=== PATIENT | female | born 1960 | race Caucasian/White ===

== ENCOUNTER → 2016-06-07 | Outpatient (CLI) | payer MEDICARE, OTHER ==
--- NOTE | 2016-06-07 16:30 | DI ---
Indication: ITS.REASON: M25.512 PROCEDURE: MRI SHOULDER LEFT W/O CONTRAST: Encounter: Initial Comparison: None Technique: Multiplanar multisequence MR imaging of the left shoulder was performed without contrast. Findings: There is a longitudinal split tear of the long head biceps tendon which may be completely torn at the superior aspect of the bicipital groove. Subscapularis tendon shows a high-grade or possibly complete tear distally. The sagittal sequence is severely degraded by motion artifact and is nondiagnostic. There is a rim rent tear of the distal supraspinatus tendon with tendinopathy. No complete or full-thickness tear. There are acromial osteophytes impinging upon the supraspinatus best seen on coronal image #9. The infraspinatus tendon shows some tendinopathy or intrasubstance tearing distally. Teres minor tendon is grossly intact. No acute fracture. Moderate acromioclavicular degenerative change. Trace fluid in the subacromial subdeltoid bursa. Some degenerative tearing or fraying of the superior labrum. Muscular signal intensity is grossly normal. Impression: Limited exam due to motion artifact. 1. Tear of the long head biceps tendon and subscapularis. 2. Partial tearing of the supraspinatus and infraspinatus tendons. .
== END ==
LOC: IMA 14:06
PROVIDERS: ATTEND Orthopaedic Surgery
DX: S46.012A Strain of muscle(s) and tendon(s) of the rotator cuff of left shoulder, initial encounter (principal); S46.112A Strain of muscle, fascia and tendon of long head of biceps, left arm, initial encounter; X58.XXXA Exposure to other specified factors, initial encounter; Y93.9 Activity, unspecified; Y92.9 Unspecified place or not applicable; Y99.9 Unspecified external cause status; M25.512 Pain in left shoulder

== ENCOUNTER → 2016-07-04 | Outpatient (CLI) | payer MEDICARE, OTHER ==
[2016-07-04 10:07] LABS: BASOPHILS % (AUTO) 0.4 % (0-2); EOSINOPHILS # (AUTO) 0.3 T/MM3 (0-0.5); HCT - HEMATOCRIT 42.4 % (36-46); HGB - HEMOGLOBIN 13.9 GM/DL (12-16); IMMATURE GRANULOCYTE # (AUTO) 0.02 T/MM3 (0.00-0.03); IMMATURE GRANULOCYTE % (AUTO) 0.3 % (0.0-0.5); LYMPHOCYTES # (AUTO) 2.4 T/MM3 (1-4.8); LYMPHOCYTES % (AUTO) 32.5 % (23-45); MEAN CORPUSCULAR HGB CONC(MCHC 32.8 GM/DL (31-37); MEAN CORPUSCULAR VOLUME 85.5 UM3 (80-100); MEAN PLATELET VOLUME 9.7 UM3 (9.4-12.4); MONOCYTES # (AUTO) 0.9 T/MM3 (0-0.8); NEUTROPHILS #(AUTO)-ABSOLUTE 3.7 T/MM3 (1.8-7.7); NEUTROPHILS % (AUTO) 50.8 % (33-66); RED BLOOD COUNT 4.96 M/MM3 (4.00-5.20); WBC - WHITE BLOOD COUNT 7.2 T/MM3 (4.5-11.0)
[2016-07-04 10:19] LABS: ANION GAP 14 MEQ/L (5-15); BUN/CREATININE RATIO 26 RATIO (6-26); CALCIUM 9.6 MG/DL (8.4-10.2); CHLORIDE 108 MEQ/L (98-107); CO2 - CARBON DIOXIDE 24 MEQ/L (22-30); CREATININE 0.9 MG/DL (0.7-1.2); GLOMERULAR FILTRATION RATE 65; GLUCOSE 111 MG/DL (65-110); POTASSIUM 4.1 MEQ/L (3.6-5); SODIUM 146 MEQ/L (134-144)
== END ==
LOC: IMA 09:40
PROVIDERS: ATTEND Orthopaedic Surgery
DX: Z01.818 Encounter for other preprocedural examination (principal); M25.512 Pain in left shoulder
CPT/HCPCS: 36415; 80048; 85025; 93005

== ENCOUNTER 2016-07-16 09:18 | Day surgery (SDC) | payer MEDICARE, OTHER ==
[2016-07-16] VITALS (24 sets, daily range): BP systolic 107–156; BP diastolic 62–94; PULSE 64–72; RESP 14–39; TEMP 96.9–97.7; O2SAT 81–99; Ht 154.9 cm; Wt 78.7 kg
[~2016-07-16] VITALS: Ht 154.9 cm; Wt 78.7 kg
--- NOTE | 2016-07-16 07:50 | HPF ---
CHIEF COMPLAINT Left shoulder pain. SUBJECTIVE Ms. Garrison returns for followup on left shoulder pain. She has been evaluated by Dr. Real. Pain has been intermittent for a number of years with no specific injury. 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 It is located laterally and anterolaterally, radiates to the deltoid. It is moderate in severity, worse with overhead activity, throwing, pushing, pulling, weather changes. She has tried ibuprofen in the past as well as home exercises , rest, ice and heat - all without improvement. She has no previous history with this shoulder. She has had no injections. Symptoms included pain at night which awakens her from sleep. She has popping and weakness. MRI was ordered and it shows a high-grade partial-thickness tear of the anterior supraspinatus. Difficult to determine if it is truly full-thickness. Tendon showed some tendinopathy as well. Subscapularis-- there is a high-grade tearing , possible complete tear of the superior aspect. Long head biceps shows split tearing and appears to be ruptured but hung up within the groove. There is degenerative signal in superior labrum as well. Fluid is present in the subacromial bursa. There is moderate AC joint change. REVIEW OF SYSTEMS Negative for fever or chills. Negative for skin infection or rash. Negative for numbness or tingling. PAST MEDICAL HISTORY 1. Bronchitis. 2. Asthma. 3. Pneumonia. 4. Anxiety. 5. Depression. 6. Hypercholesterolemia. 7. Yeast syndrome. ALLERGIES Codeine upsets her stomach. MEDICATIONS Ibuprofen as needed. PAST SURGICAL HISTORY 1. Heel reconstruction. 2. Nose reconstruction. 3. Hysterectomy. 4. Hiatal hernia repair. 5. Left elbow surgery. 6. Left carpal tunnel release. 7. Right rotator cuff surgery. 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 Uses alcohol on occasional basis. Denies illicit drug use. FAMILY HISTORY Reviewed and updated in the EMR. PHYSICAL EXAM 5 feet, 1-1/2 inches tall. Weighs 178 pounds. Well developed. Well nourished. Alert and oriented x 3. No acute distress. Pleasant. Cooperative. There is no rash or abnormal lesions in the affected extremity. 2+ palpable distal pulses. Brisk capillary refill in all digits. Normal sensation to light touch in affected extremities. Gait exam is normal without any assistive device. Left upper extremity is focused on. It shows no swelling, deformity or mass. There is tenderness present over the anterolateral border of the acromion, mild tenderness over the greater tuberosity. AC joint, neck, posterior joint line and bicipital groove are nontender. Range of motion: She actively forward flexes to 150 with pain, passively goes to 170. Abducts to 130 with a painful impingement of arc in abduction. Internal rotation is to L5. External rotation to 60. Mild weakness with abduction and external rotation. This causes pain as well. Internal rotation strength at this side is normal. She does have a positive bear hug test. Stability: Joint stable in all planes. Positive Sullivan and Neer impingement signs. Negative Speed's, Yergason's and O 'Parish's. No instability. Contralateral extremity: Complete exam is performed. Shows skin is intact. No swelling. No tenderness. Normal range of motion. Normal strength and stability. ASSESSMENT Left shoulder pain with high-grade partial versus full-thickness supraspinatus rotator cuff tear as well as partial versus full-thickness upper border subscapularis tear and long head biceps tendon rupture. PLAN Dr. Real is recommending a left shoulder arthroscopy, rotator cuff repair, subacromial decompression, debridement and treatment as needed. Risks and benefits have been reviewed. They include, but are not limited to, nerve damage , artery damage, infection, stroke, SD, pulmonary embolism, deep vein thrombosis , ileus, , potential risk she may not regain full strength and full motion or have continued pain following surgery. There are also medical risks of the anesthesia. She had an opportunity to ask questions. They were all answered to her satisfaction. BENJAMIN
[~2016-07-16 09:18] MED LIST: CEFAZOLIN 1 GRAM INJECTION IV ONE; LIDOCAINE 1% (10mg/ml) 2ml SDV INJ ONE; MIDAZOLAM 2mg/2ml INJECTION IV ONE; PROPOFOL 500mg 50 ML IV ONE; ROCURONIUM 50mg/5ml INJECTION IV ONE; ROPIVACAINE 0.5% (5mg/ml) 30ml INJ ONE
--- OUTSIDE RECORDS SUMMARY | 2016-07-16 09:23 | XMS REPORT | Continuity of Care Document ---
Author Author [facility] Address Unknown Phone Unavailable Care Team Providers Care [employer] Sales Manager Name Role Phone Abigail Feliciano PP Unavailable Payers Payer name Insurance type Covered alliance party ID Authorization(s) Unknown Problems Condition Effective Dates (start - stop) Clinical Status Bronchitis, Acute - *Chronic Bronchitis, Acute - *Acute Family History Family Member Diagnosis Age At Onset Status Father (Unknown) Heart disease Yes Sister (Unknown) Multiple Sclerosis Yes Brother (Unknown) Cancer - testicular Yes Mother (Unknown) Cancer - lymphoma Yes Father (Unknown) Cancer - unknown Yes Mother (Unknown) COPD Yes Social History Social History Element Description Quantity Unknown Allergies, Adverse Reactions, Alerts Substance Reaction Severity Status Unknown Medications Medication Instructions Dosage Effective Dates (start - stop) Status ibuprofen 200 mg capsule take 1 capsule (200MG) by oral route every 6 hours as needed 200 MG - Active Daytime Cold & Flu Relief 30 mg-10 mg-100 mg-250 mg capsule take 1 Tablet by Oral route every day as needed 0 - Active Ceftin 500 mg tablet take 1 tablet (500MG) by oral route every 12 hours 500 MG - Active Ventolin HFA 90 mcg/actuation aerosol inhaler inhale 2 puff by inhalation route every 4 - 6 hours as needed 0 - Active Immunizations Vaccine Date Status Comments Unknown Results Test Name Date and Time Measure Units Reference Range Abnormal Flag Comments Panel Description: Influenzae A/B Influenzae A 18:00:00 Negative for Influenzae A Negative for Influen Influenzae B 18:00:00 Negative for Influenzae B Negative for Influen Vital Signs Date / Time: Height Weight Pulse Rate Blood Pressure Temperature /17:27:00 61.00 in 159.00 lbs 125 /min 140/110 mm[Hg] 98.4 F Procedures Procedure Date Unknown Encounters Encounter Location Date Patient Visit [facility] Care Patient Visit [facility] Care Advance Directives Directive Effective Date Unknown
--- OUTSIDE RECORDS SUMMARY | 2016-07-16 09:23 | XMS REPORT | Continuity of Care Document ---
Author Author [facility] Organization [facility] Address Unknown Phone Unavailable Allergies Medications Problems Procedures Results Encounters ACCT No. Visit Date/Time Discharge Status Pt. Type Provider Facility Loc./Unit Complaint [id number] 03/09/2013 17:20:00 03/09/2013 23 :59:59 [facility] Outpatient
--- NOTE | 2016-07-16 10:12 | ANESPREOP ---
Anesthesia Record Date and Time DATE: 07/16/16 TIME: 10:10 Pre-Op Diagnosis left rotator cuff tear Proposed Surgical Procedure lt. shoulder arthroscopy/rcr/sad/debridement/silverman Allergies: Coded Allergies: codeine (Verified Allergy, Unknown, UPSET STOMACH, 07/13/16) Ht/Wt/BMI Height: 5 ' 1.00 " Weight: 78.700 kg BMI: 32.8 kg/m2 Medications Inpatient Medications Current Medications Medications (Trade) Dose Ordered Sig/Yazmin Start Time Stop Time Status Last Admin Dose Admin Lactated Ringer's (Lactated Ringers) 1,000 ml @ 50 mls/hr Q20H 07/16/16 07:00 No Active Prescriptions or Reported Meds Currently on Beta Serg: No Medical/Surgical History Anesthesia PMH: Reports: Asthma, COPD, Hiatal Hernia (HX OF REPAIR), Denies: * Angina, *Diabetes, *Hypertension, *FL, CHF, CVA/Stroke/TIA, Cancer, Clotting Problems, Glaucoma, Hepatitis, Malignant Hyperthermia, Pneumonia, Seizures, Thyroid Disease, Tuberculosis Smoking Status: Former smoker Has pt. smoked today?: No # of Packs per Day: 1 # of Years: 20 Use Chewing Tobacco?: No Second Hand Exposure: No Substance Use Type: does not use Alcohol Intake: none HX of Last Menstrual Period: HYST. Past Surgical History Orthopedic Surgeries: Yes - R. SHOULDER, L.ELBOW, CTR-RIGHT. Abdominal Surgeries: Genitourinary Surgeries: Cardiac Surgeries: Endocrine Surgeries: Reproductive Surgeries: Yes - HYST. Neurological Surgeries: Ear Surgeries: Nose Surgeries: Yes - RECONSTRUCTION NOSE Throat Surgeries: Other Surgeries: Yes - HIATAL HERNIA Anesthesia Adverse Reactions: FOUND none Family Hx of Anesthesia Advers: none Pertinent Findings EKG Rhythm: Sinus Rhythm, Bundle Branch Block Physical Exam Respiratory: Lungs clear Cardiovascular: FOUND No murmur Airway Assessment Mallampati Score: II TMD: 3 Fingerbreadths Neck Extension: Good Teeth: Chipped Teeth/Crowns Overall Assessment: No Airway Concerns ASA: 2 Plan Anesthesia Plan: GETA Peripheral Nerve Block: Interscalene Block - LT Discussion Discussed risks/options/alternatives of anesthesia and questions answered. Patient consents. Nursing pain assessment noted. Attestation Statement Prior to the delivery of any anesthetic medication, I examined the patient, developed the plan, obtained the patient's consent and discussed the risk and benefits of the procedure with the patient/guardian. IMANI SPARKS CRNA July 16, 2016 10:12
[2016-07-16] MEDS: LR 1,000 ML IV SCH ×2 (10:28→13:11)
[2016-07-16] MEDS ORDERED: MIDAZOLAM 2mg/2ml INJECTION IV ONE ×2 (10:30→13:15)
--- NOTE | 2016-07-16 10:30 | ANESPD ---
Peripheral Nerve Blockade Physician: Cristino Real MD Date: 07/16/16 Surgical Procedure: left rotator cuff repair Discussion Discussed risks/options/alternatives of anesthesia and questions answered. Patient consents. Nursing pain assessment noted. Block Start: 10:20 Block Stop: 10:25 Block Employed: [employer] Indication: post-operative pain Approach: left side confirmed Position: supine Patient: Consent, risks/benefits discussed, Informed, post block act. discussed Monitors: EKG, SpO2, NIBP IV Sedation: Yes Midazolam (mg): 1 Initial Vital Signs First Documented Vital Signs Date Time Temp Pulse Resp B/P Pulse Ox O2 Delivery O2 Flow Rate FiO2 07/16/16 10:19 16 Post Vital Signs Vital Signs Date Time Temp Pulse Resp B/P Pulse Ox O2 Delivery O2 Flow Rate FiO2 07/16/16 10:19 16 Initial Pain Score: 0 Post Block Score: 0 Prep: chlorhexadine/ETOH Ultrasound Used?: Yes Injectate Ropivacaine (%): 0.5 Ropivacaine (mL): 25 Was Epi 1:200,000 Used?: No Injection Injection made incrementally with constant monitoring and aspiration every [5] ml. IMANI SPARKS I VACUUM CLEANER OPERATOR July 16, 2016 10:30
[2016-07-16] MEDS ORDERED: PROPOFOL 200mg 20 ML IV ONE (11:53)
[2016-07-16] MEDS ORDERED: SUGAMMADEX 200 MG/2 ML INJECTION IV ONE (12:14)
[2016-07-16] MEDS ORDERED: MELO7.5T12 PO (12:28)
[2016-07-16] MEDS ORDERED: ONDA4TAB4 PO (12:28)
[2016-07-16] MEDS ORDERED: OXYC1TAB8 PO (12:28)
--- NOTE | 2016-07-16 12:30 | PDPROCED ---
Immediate Operative Note DATE: 07/16/16 TIME: 12:28 Preop Diagnosis: LEFT SHOULDER PAIN, RCT IMPINGEMENT Postop Diagnosis: Left shoulder rotator cuff tear, impingement, long head biceps degeneration Surgical Procedures: L Arthroscopic RCR (SAD, biceps tenotomy) Surgeon: Farhan Anesthesia: General (plus regional block) Complications: none Estimated Blood Loss see anesthesia MARÍA CLAUDIO July 16, 2016 12:30
--- NOTE | 2016-07-16 13:39 | NUR ---
STATUS PT AWAKENS THRASHING SAYING SHE CAN'T BREATH BUT CAPNOGRAPHY AND SP02 RESD WELL WHEN ASLEEP RESP REG AT 16 TO 20 PER MIN PT DOES SNORE OCCASIONALLY BUT NO EPISODES OF APNEA NOTED. PT IS NOT COMPLETELY ALERT AND ORIENTED. DRIFTS OFF TO SLEEP EASILY. DENIES PAIN.
--- NOTE | 2016-07-16 14:54 | ANESPO ---
Post-Op Note Date 07/16/16 Time: 13:55 Status Pt Participated in Evaluation: Pt participated in person Vital Signs Date Time Temp Pulse Resp B/P Pulse Ox O2 Delivery O2 Flow Rate FiO2 07/16/16 14:15 64 16 137/94 96 Room Air 07/16/16 13:45 97.2 07/16/16 13:25 2.00 Respiratory Function: Airway patent, Regular respirations Cardiovascular Function: Regular pulse Mental Status: Alert/oriented Pain Level Intensity: 0 Hydration: Taking po fluids Complications during Recovery None apparent Follow-Up Instructions Instructions Per Surgeon IMANI SPARKS CRNA July 16, 2016 14:54
[2016-07-16] MEDS ORDERED: EPINEPHRINE 1 MG/ML INJ ONE (15:09)
--- NOTE | 2016-07-16 20:02 | OPNOTEF ---
DATE OF OPERATION 07/16/2016 PREOPERATIVE DIAGNOSES 1. Left shoulder rotator cuff tear. 2. Left shoulder long head biceps tendon tear. 3. Left shoulder rotator cuff impingement. POSTOPERATIVE DIAGNOSES 1. Left shoulder partial-thickness articular-sided subscapularis tear. 2. Left shoulder full-thickness supraspinatus tear. 3. Left shoulder high-grade partial-thickness long head biceps tendon tear with degenerative type II SLAP lesion. 4. Left shoulder degenerative anterior labral tear. 5. Left shoulder rotator cuff impingement. PROCEDURE 1. Left shoulder arthroscopic rotator cuff repair to include subscapularis and supraspinatus. 2. Left shoulder arthroscopic long head biceps tenotomy. 3. Left shoulder arthroscopic debridement anterior and superior labrum. 4. Left shoulder arthroscopic subacromial decompression. SURGEON Cristino Real MD SALMON [employer]ILL[employer] VESSEL OPERATOR Wayne Kaminski PA-C ANESTHESIA General with regional block. FLUIDS Please refer to Anesthesia chart EBL Minimal. TOURNIQUET None used. COMPLICATIONS None. CONDITION Stable in recovery room. DESCRIPTION OF PROCEDURE The patient was identified in the preoperative holding area. The operative extremity was identified and appropriately marked. Risks, benefits, alternatives and potential complications were discussed and informed consent was obtained. The patient was taken to the operating theatre and placed supine on the operating table. Appropriate cardiorespiratory monitors were applied. General anesthesia was induced. A regional block had been placed in preoperative holding. The patient was positioned in a seated beach-chair position with all bony prominences well padded. Head and neck were secured in a safe position. Left upper extremity was sterilely prepped and draped in the usual fashion. Surgical time-out was performed, confirmed with myself, the car sales associate and circulating nurse. Preoperative antibiotics were given. Examination under anesthesia revealed full passive range of motion of the left shoulder. No evidence of instability. A standard posterior arthroscopic portal was established. The arthroscope was inserted and the glenohumeral joint was insufflated with saline. Needle localization was utilized to establish an anterior portal in the rotator interval and diagnostic examination ensued. The glenohumeral articular cartilage was well maintained. There was degenerative fraying of the anterior labrum which was debrided with a shaver. The inferior axillary recess was free of loose bodies or debris. Posterior labrum was intact. Superior labrum showed detachment of the long head biceps anchor with degenerative fraying of the superior labrum. The long head biceps was intact in its intraarticular portion. It was pulled into the joint, noting high-grade partial-thickness tearing and diffuse tenosynovitis throughout the extraarticular portion. This was found to also be unstable anteriorly through a tear of the articular side of the superior border of the subscapularis. Because of the condition of the tendon tissue at the long head biceps it was elected to proceed with a tenotomy. An arthroscopic basket forceps was introduced and this was released from its attachment at the superior labrum and allowed to retract. The superior labrum was then further debrided. The subscapularis was then examined closer. It was found to be nearly a full-thickness tear of the upper one-third. The undersurface was debrided, noting tendinopathy and intrasubstance splitting lateral to medial. This time undersurface of the tendon was debrided. The footprint was debrided to a bleeding cortical surface. Two #2 high strength sutures were passed in a cinch stitch type fashion through the upper border of the subscapularis. These were then passed through a Multifix S anchor which was positioned in the anatomic location of the superior aspect of the lesser tuberosity. This was then impacted as the sutures were tensioned which provided good reapproximation of the upper border of the subscapularis to its anatomic footprint. Suture tails were cut. The supraspinatus was then inspected. There was noted to be a few strands of articular-sided tendon tissue remaining. These were easily debrided with a shaver, revealing a full-thickness rotator cuff tear. Infraspinatus and teres minor posteriorly were found to be intact. The footprint was debrided to a bleeding cortical surface at its medial aspect. The arthroscope was then withdrawn and placed into the subacromial space. A lateral portal was established. A thorough bursectomy was performed to include the anterolateral and posterior gutters. CA ligament was notably frayed. It was released, revealing a moderate-size anterolateral subacromial spur. Preoperative imaging had also noted some AC joint arthritis that was asymptomatic but did have inferior spurring. A standard acromioplasty was then performed with a 5.5 bur to convert this acromion to a type 1 acromion. The lateral clavicle was co-planed of its underlying spurs. The bursal aspect of the cuff was then inspected. The full-thickness supraspinatus tear was easily identified. The edge of the tendon was debrided. This was a crescentic tear measuring slightly over 2 cm from anterior to posterior. The remainder of the footprint was debrided to a bleeding cortical surface. An accessory portal was created and two 5.0 mm TwinFix anchors were placed along the medial margin of the footprint. These sutures were passed in a horizontal mattress configuration and subsequently tied arthroscopically. A free strand of suture was placed through the far anterior aspect to try to grasp the dog ear that appeared to be forming in this area. A single limb of suture from each knot as well as a single limb from the free suture were then pulled laterally out the cannula and placed through a Multifix S anchor. The first Multiflex S anchor was placed at the anterior margin of the tear on the lateral aspect of the greater tuberosity. The anchor was impacted, deployed and the suture tails cut after appropriate tensioning. This was then repeated for a second anchor more posteriorly. Probing of the rotator cuff repair noted a stable and intact repair. The shoulder was taken through range of motion, noting no gapping of the repair. The shoulder was then copiously lavaged, irrigated and drained. All arthroscopic instruments were removed. Portals were closed with nylon sutures. Sterile dressings were applied followed by an abduction sling. The patient was awakened from anesthesia and taken to the recovery room in stable and satisfactory condition. BENJAMIN
--- NOTE | 2016-07-17 22:12 | HPF ---
CHIEF COMPLAINT Left shoulder pain. SUBJECTIVE Ms. Garrison returns for followup on left shoulder pain. She has been evaluated by Dr. Real. Pain has been intermittent for a number of years with no specific injury. 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 It is located laterally and anterolaterally, radiates to the deltoid. It is moderate in severity, worse with overhead activity, throwing, pushing, pulling, weather changes. She has tried ibuprofen in the past as well as home exercises, rest, ice and heat - all without improvement. She has no previous history with this shoulder. She has had no injections. Symptoms included pain at night which awakens her from sleep. She has popping and weakness. MRI was ordered and it shows a high-grade partial-thickness tear of the anterior supraspinatus. Difficult to determine if it is truly full-thickness. Tendon showed some tendinopathy as well. Subscapularis-- there is a high-grade tearing, possible complete tear of the superior aspect. Long head biceps shows split tearing and appears to be ruptured but hung up within the groove. There is degenerative signal in superior labrum as well. Fluid is present in the subacromial bursa. There is moderate AC joint change. REVIEW OF SYSTEMS Negative for fever or chills. Negative for skin infection or rash. Negative for numbness or tingling. PAST MEDICAL HISTORY 1. Bronchitis. 2. Asthma. 3. Pneumonia. 4. Anxiety. 5. Depression. 6. Hypercholesterolemia. 7. Yeast syndrome. ALLERGIES Codeine upsets her stomach. MEDICATIONS Ibuprofen as needed. PAST SURGICAL HISTORY 1. Heel reconstruction. 2. Nose reconstruction. 3. Hysterectomy. 4. Hiatal hernia repair. 5. Left elbow surgery. 6. Left carpal tunnel release. 7. Right rotator cuff surgery. 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 Uses alcohol on occasional basis. Denies illicit drug use. FAMILY HISTORY Reviewed and updated in the EMR. PHYSICAL EXAM 5 feet, 1-1/2 inches tall. Weighs 178 pounds. Well developed. Well nourished. Alert and oriented x 3. No acute distress. Pleasant. Cooperative. There is no rash or abnormal lesions in the affected extremity. 2+ palpable distal pulses. Brisk capillary refill in all digits. Normal sensation to light touch in affected extremities. Gait exam is normal without any assistive device. Left upper extremity is focused on. It shows no swelling, deformity or mass. There is tenderness present over the anterolateral border of the acromion, mild tenderness over the greater tuberosity. AC joint, neck, posterior joint line and bicipital groove are nontender. Range of motion : She actively forward flexes to 150 with pain, passively goes to 170. Abducts to 130 with a painful impingement of arc in abduction. Internal rotation is to L5. External rotation to 60. Mild weakness with abduction and external rotation. This causes pain as well. Internal rotation strength at this side is normal. She does have a positive bear hug test. Stability: Joint stable in all planes. Positive Sullivan and Neer impingement signs. Negative Speed's, Yergason's and Esmeralda's. No instability. Contralateral extremity: Complete exam is performed. Shows skin is intact. No swelling. No tenderness. Normal range of motion. Normal strength and stability. ASSESSMENT Left shoulder pain with high-grade partial versus full-thickness supraspinatus rotator cuff tear as well as partial versus full-thickness upper border subscapularis tear and long head biceps tendon rupture. PLAN Dr. Real is recommending a left shoulder arthroscopy, rotator cuff repair, subacromial decompression, debridement and treatment as needed. Risks and benefits have been reviewed. They include, but are not limited to, nerve damage, artery damage, infection, stroke , PA, pulmonary embolism, deep vein thrombosis, ileus, , potential risk she may not regain full strength and full motion or have continued pain following surgery. There are also medical risks of the anesthesia. She had an opportunity to ask questions. They were all answered to her satisfaction. BENJAMIN
== END 2016-07-16 14:55 | disposition home or self-care (01) ==
LOC: NSC 09:18
PROVIDERS: ATTEND Orthopaedic Surgery
DX: M75.122 Complete rotator cuff tear or rupture of left shoulder, not specified as traumatic (principal); M75.112 Incomplete rotator cuff tear or rupture of left shoulder, not specified as traumatic; S46.112A Strain of muscle, fascia and tendon of long head of biceps, left arm, initial encounter; S43.432A Superior glenoid labrum lesion of left shoulder, initial encounter; M75.42 Impingement syndrome of left shoulder; J44.9 Chronic obstructive pulmonary disease, unspecified; J45.909 Unspecified asthma, uncomplicated; Z88.5 Allergy status to narcotic agent; Z87.891 Personal history of nicotine dependence; Z90.710 Acquired absence of both cervix and uterus; X58.XXXA Exposure to other specified factors, initial encounter
CPT/HCPCS: 29826; 29827; 76942; C1713; J0171; J0330; J0690; J2250; J2704; J2795; J7120